=== PATIENT | male | born 1965 | race Caucasian/White ===

== ENCOUNTER 2017-08-21 16:25 | Emergency (ER) | payer OTHER ==
[~2017-08-21] VITALS: Ht 193 cm; Wt 81.6 kg
[2017-08-21 16:26] VITALS: BP 163/91; Ht 193 cm; Wt 81.6 kg
== END 2017-08-21 17:20 | disposition other institution (70) ==
LOC: ED 16:25
DX: S01.00XA Unspecified open wound of scalp, initial encounter (principal); F20.9 Schizophrenia, unspecified; F15.10 Other stimulant abuse, uncomplicated; F17.210 Nicotine dependence, cigarettes, uncomplicated; I10 Essential (primary) hypertension; Z71.6 Tobacco abuse counseling; Z59.0 Homelessness; X58.XXXA Exposure to other specified factors, initial encounter; Y93.89 Activity, other specified; Y92.89 Other specified places as the place of occurrence of the external cause; Y99.8 Other external cause status
CPT/HCPCS: 99406

== ENCOUNTER 2017-08-21 16:25 | Emergency (ER) | payer OTHER | END 2017-08-21 17:20 | disposition other institution (70) | LOC: ED 16:25 | DX: Z02.89 Encounter for other administrative examinations (principal) ==

== ENCOUNTER 2018-05-30 04:28 | Emergency (ER) | payer OTHER ==
[~2018-05-30] VITALS: Ht 175.3 cm; Wt 86.2 kg
[2018-05-30 04:37] VITALS: Ht 175.3 cm; Wt 86.2 kg
[2018-05-30 06:10] VITALS: BP 137/78
== END 2018-05-30 06:10 | disposition home or self-care (01) ==
LOC: ED 04:28
DX: R21 Rash and other nonspecific skin eruption (principal); I10 Essential (primary) hypertension; F20.9 Schizophrenia, unspecified; Z88.0 Allergy status to penicillin